=== PATIENT | female | born 1985 | race Hispanic/Latino ===

== ENCOUNTER 2017-08-07 22:38 | Emergency (ER) | payer MEDICAID ==
[2017-08-08 00:33] VITALS: BP 108/84
[2017-08-08] MEDS ORDERED: REGLAN IV ONE (01:45)
[2017-08-08] MEDS ORDERED: BENADRYL IV ONE (01:45)
[2017-08-08 04:29] LABS: Bacteria,Urine 1+ /HPF (Negative); Bilirubin,Urine NEG (Negative); Blood,Urine NEG (Negative); Color,Urine Yellow (Yellow); Mucus,Urine 1+ /HPF; Protein,Urine <15 mg/dL mg/dL (Negative); Urobilinogen,Urine < 2.0 mg/dL (<2.0)
== END 2017-08-08 02:15 | disposition left against medical advice (07) ==
LOC: ED 22:38
DX: R10.9 Unspecified abdominal pain (principal); R51 Headache; R42 Dizziness and giddiness; Z53.21 Procedure and treatment not carried out due to patient leaving prior to being seen by health care provider
CPT/HCPCS: 81001; J1200; J2765

== ENCOUNTER 2017-10-15 14:43 | Emergency (ER) | payer MEDICAID ==
[2017-10-15 15:21] LABS: Basophils % (Auto) 0.3 % (0.0-1.8); Eosinophils # (Auto) 0.1 K/mm3 (0.0-0.4); Eosinophils % (Auto) 1.2 % (0.0-4.3); Hematocrit 42.4 % (30.3-42.9); Hemoglobin 14.5 gm/dl (10.1-14.3); Lymphocytes # (Auto) 2.4 K/mm3 (1.2-5.4); Lymphocytes % (Auto) 37.2 % (13.4-35.0); Mean Corpuscular HGB Conc 34 % (30-34); Mean Corpuscular Hemoglobin 31 pg (28-32); Mean Corpuscular Volume 90 fl (79-97); Monocytes # (Auto) 0.5 K/mm3 (0.0-0.8); Monocytes % (Auto) 8.1 % (0.0-7.3); Platelet Count 285 K/mm3 (140-440); Red Blood Count 4.71 M/mm3 (3.65-5.03); Red Cell Distribution Width 12.3 % (13.2-15.2)
[2017-10-15 15:25] LABS: Bacteria,Urine 1+ /HPF (Negative); Bilirubin,Urine NEG (Negative); Blood,Urine NEG (Negative); Color,Urine Yellow (Yellow); HCG Qualitative,Urine Negative (Negative); Mucus,Urine 1+ /HPF; Protein,Urine <15 mg/dL mg/dL (Negative); Urobilinogen,Urine < 2.0 mg/dL (<2.0)
[2017-10-15 15:48] LABS: Alanine Aminotransferase 12 units/L (7-56); Albumin 4.5 g/dL (3.9-5); BUN/Creatinine Ratio 13; Blood Urea Nitrogen 9 mg/dL (7-17); Calcium 9.9 mg/dL (8.4-10.2); Hemolysis Index 8
[2017-10-15] MEDS ORDERED: EMTRIVA 200 MG, VIREAD 300 MG PO ONE (21:21)
[2017-10-15] MEDS ORDERED: ROCEPHIN IM ONE (21:23)
[2017-10-15] MEDS ORDERED: XYLOCAINE 1% MPF 5 mL INFILTRATI ONE (21:23)
[2017-10-15] MEDS ORDERED: FLAGYL PO ONE (21:23)
[2017-10-15] MEDS ORDERED: ZITHROMAX PO ONE (21:23)
[2017-10-15] MEDS ORDERED: TYLENOL PO ONE (21:41)
[2017-10-15] MEDS ORDERED: VIREAD PO ONE (21:45)
[2017-10-15] MEDS ORDERED: EMTRIVA PO ONE (21:45)
[2017-10-15] MEDS ORDERED: ISENTRESS PO ONE (22:00)
[2017-10-15] MEDS ORDERED: ZOFRAN ODT ONE (23:32)
[2017-10-15] MEDS ORDERED: ZOFRAN ODT PO ONE (23:36)
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
[2017-10-16 01:45] VITALS: BP 125/73
== END 2017-10-16 01:45 | disposition home or self-care (01) ==
LOC: ED 14:43
DX: T74.21XA Adult sexual abuse, confirmed, initial encounter (principal); F17.200 Nicotine dependence, unspecified, uncomplicated
CPT/HCPCS: 36415; 80053; 81001; 81025; 84703; 85025; 87210; 87591; 96372; 99284; J0696; Q0162